=== PATIENT | female | born 1980 | race Caucasian/White ===

== ENCOUNTER 2021-02-04 22:32 | Emergency (ER) | payer BC, OTHER ==
[~2021-02-04] VITALS: Ht 152.4 cm; Wt 93.0 kg
[~2021-02-04 22:32] MED LIST: OXYC1TAB14 PO
[2021-02-04] MEDS ORDERED: ONDANSETRON ODT 4 MG ONE (23:45)
[2021-02-05 00:08] LABS: BASOPHILS % (AUTO) 1 % (0-1); EOSINOPHILS % (AUTO) 3 % (1-7); LYMPHOCYTES % (AUTO) 31 % (22-44); MEAN CORPUSCULAR HEMOGLOBIN 30.5 pg (27.0-34.8); MONOCYTES % (AUTO) 7 % (2-9); NEUTROPHILS % (AUTO) 58 % (42-75); PLATELET COUNT 406 x10^3/uL (130-400); RED BLOOD COUNT 4.38 x10^6/uL (3.82-5.3); RED CELL DISTRIBUTION WIDTH 13.6 % (9.6-15.2)
[2021-02-05 00:09] LABS: MD NO
[2021-02-05 00:19] LABS: ALBUMIN 3.3 g/dL (3.4-5.0); ANION GAP 6 mmol/L (5-15); CALCIUM 8.8 mg/dL (8.5-10.1); CHLORIDE 108 mmol/L (98-107); CREATININE 0.63 mg/dL (0.55-1.02)
--- NOTE | 2021-02-05 00:40 | NUR ---
clinical program director: pt from lobby to room 8
--- NOTE | 2021-02-05 00:50 | NUR ---
Pt to imaging.
[2021-02-05] MEDS ORDERED: ACETAMINOPHEN 500 MG TABLET PO ONE (01:00)
[2021-02-05] MEDS ORDERED: OMEPRAZOLE 20 MG CAPSULE.DR PO ONE (01:00)
[2021-02-05] MEDS ORDERED: ONDANSETRON ODT 4 MG PO ONE ×2 (01:00)
--- NOTE | 2021-02-05 01:30 | NUR ---
UA walked to lab.
--- NOTE | 2021-02-05 01:31 | NUR ---
Pt back from imaging.
[2021-02-05] MEDS ORDERED: OMEPRAZOLE 20 MG CAPSULE.DR ONE (01:49)
[2021-02-05] MEDS ORDERED: ACETAMINOPHEN 500 MG TABLET ONE (01:49)
--- NOTE | 2021-02-05 01:54 | NUR ---
Medicated per eMAR. Pt refused zofran as she states she is not nauseous.
[2021-02-05 01:55] LABS: MICROSCOPIC INDICATED
[2021-02-05 02:15] VITALS: BP 109/66
--- NOTE | 2021-02-05 02:45 | NUR ---
Pt agrees with and understands discharge plan and instructions.
== END 2021-02-05 02:48 | disposition home or self-care (01) ==
LOC: ED 02-05 00:30
DX: O21.0 Mild hyperemesis gravidarum (principal); O99.331 Smoking (tobacco) complicating pregnancy, first trimester; R10.9 Unspecified abdominal pain; F17.210 Nicotine dependence, cigarettes, uncomplicated; Z90.49 Acquired absence of other specified parts of digestive tract; Z3A.08 8 weeks gestation of pregnancy
CPT/HCPCS: 36415; 76801; 80048; 81001; 82040; 84702; 85025; 99284; 99406